=== PATIENT | female | born 1965 | race Caucasian/White ===

== ENCOUNTER 2021-10-05 17:38 | Emergency (ER) | payer MEDICAID ==
[~2021-10-05] VITALS: Ht 157.5 cm; Wt 100.3 kg
[2021-10-05 17:59] VITALS: BP 157/74
[2021-10-05] MEDS ORDERED: MORPHINE SULFATE 4 MG/ML SYR IVP ONE (18:20)
[2021-10-05] MEDS ORDERED: ONDANSETRON 4 MG/2 ML VIAL IVP ONE (18:20)
[2021-10-05] MEDS ORDERED: NACL 0.9% 1,000 ML IV ONE (18:20)
[2021-10-05] MEDS ORDERED: LIDOCAINE 2% 1000 MG/50 ML VIAL INJ ONE (18:30)
[2021-10-05 18:38] LABS: BASOPHILS # (AUTO) 0.1 K/uL (0.00-0.22); BASOPHILS % (AUTO) 0.9 % (0.0-2.0); EOSINOPHILS # (AUTO) 0.1 K/uL (0-0.4); EOSINOPHILS % (AUTO) 0.6 % (0.0-4.0); HEMATOCRIT 41.9 % (36-48); HEMOGLOBIN 13.8 g/dL (12.0-16.0); LYMPHOCYTES # (AUTO) 2.3 K/uL (2.5-16.5); LYMPHOCYTES % (AUTO) 20.2 % (20.5-51.1); MEAN CORPUSCULAR HEMOGLOBIN 30 pg (27-31); MEAN CORPUSCULAR HGB CONC 33 g/dL (33-37); MEAN CORPUSCULAR VOLUME 90.7 fL (80-94); MONOCYTES # (AUTO) 0.8 K/uL (0.8-1.0); MONOCYTES % (AUTO) 6.7 % (1.7-9.3); NEUTROPHILS # (AUTO) 8.3 K/uL (1.8-7.7); NEUTROPHILS % (AUTO) 71.6 % (42.2-75.2); PLATELET COUNT (AUTO) 229 K/uL (140-450); RED BLOOD CELL COUNT(AUTO) 4.62 MIL/uL (4.20-5.40); RED CELL DISTRIBUTION WIDTH 13.5 % (11.6-13.7); WHITE BLOOD COUNT (AUTO) 11.5 K/uL (4.8-10.8)
[2021-10-05 18:59] LABS: ALBUMIN 3.3 g/dL (3.4-5.0); CARBON DIOXIDE 28.2 mmol/L (21-32); CREATININE 0.8 mg/dL (0.6-1.3); POTASSIUM 4.2 mmol/L (3.5-5.1); TOTAL BILIRUBIN 0.4 mg/dL (0.0-1.0)
--- NOTE | 2021-10-05 19:30 | NUR ---
55 y/o female, pt presents to ed with c/o sudden onset, nonradiating, posterior headache with photophobia and dizziness while at work today. denies nausea, vomiting, diarrhea. skin is pink/warm/dry. a&o x4, swedish speaking, with even and steady gait. lungs clear bl, heart rate even and tachy. pt denies dysuria, hematuria, urinary frequency or retention, or anyone sick in the household with the same symptoms. pt denies any fever, cp, sob, or cough at this time. pt states pain is 10/10 at this time, pain is constant. vss. patient positioned for comfort. hob elevated. bed down. ermd made aware of pt. pmh: denies nka med: unable to recall name
--- NOTE | 2021-10-05 19:33 | NUR ---
NOEL DAUGHTER CALLED REQUESTING UPDATE
[2021-10-05] MEDS ORDERED: IBUP-2213 PO (22:42)
[2021-10-05 22:54] LABS: CSF GLUCOSE 105 mg/dL (40-70); CSF PROTEIN 40.4 mg/dL (15-45)
[2021-10-05 23:27] VITALS: BP 142/63
--- NOTE | 2021-10-06 07:49 | NUR ---
LATE ENTRY. 0.9% NS DISCONTINUED ON 10/05/21 AT 2328
== END 2021-10-05 23:25 | disposition home or self-care (01) ==
LOC: MED 17:38
DX: G43.909 Migraine, unspecified, not intractable, without status migrainosus (principal); R42 Dizziness and giddiness; H53.149 Visual discomfort, unspecified; Z79.899 Other long term (current) drug therapy
CPT/HCPCS: 36415; 62270; 70450; 70496; 70498; 80053; 82948; 84157; 84702; 85025; 87070; 87205; 96361; 96374; 96375; 99285; J2001; J2270; J2405; J7030; Q9967